=== PATIENT | male | born 1990 | race Caucasian/White ===

== ENCOUNTER → 2016-06-24 | Outpatient (REF) | payer OTHER | LOC: M SFHCLERA 11:14 | PROVIDERS: ATTEND Nurse Practitioner Family | DX: J02.9 Acute pharyngitis, unspecified (principal) ==

== ENCOUNTER 2016-07-05 11:45 | Emergency (ER) | payer OTHER ==
[2016-07-05] MEDS ORDERED: ALBUTEROL SULFATE 2.5 MG/0.5 ML INH NEB SOLN As Ordered ONE (12:28)
[2016-07-05] MEDS ORDERED: IPRATROPIUM 0.5MG/ALBUTEROL 2.5MG INH SOL UD 3ML (DUONEB)(J7620) As Ordered ONE (12:28)
[2016-07-05 12:37] LABS: BASO # 0.2 K/mm3 (0.0-0.2); BASO % 1.7 % (0.0-1.0); EOS # 1.1 K/mm3 (0.0-0.50); EOS % 9.7 % (0.0-3.0); LARGE UNSTAINED CELL # 0.1 K/mm3 (0.0-0.4); LARGE UNSTAINED CELL % 1.1 % (0.0-4.0); LYMPH % 16.9 % (24.0-44.0); MEAN CORPUSCULAR HEMOGLOBIN 29.2 pg (27.0-33.0); MEAN CORPUSCULAR HGB CONC 33.4 g/dl (32.0-36.5); MEAN CORPUSCULAR VOLUME 87.3 fl (80.0-96.0); MONO # 0.5 K/mm3 (0.0-0.8); MONO % 4.4 % (0.0-5.0); NEUTROPHILS # 7.4 K/mm3 (1.8-7.7); NEUTROPHILS % 66.2 % (36.0-66.0); PLATELET COUNT, AUTOMATED 327 k/mm3 (150-450); RED CELL DISTRIBUTION WIDTH 13.7 % (11.5-14.5); WHITE BLOOD COUNT 11.2 K/mm3 (4.0-10.0)
[2016-07-05 12:51] LABS: ABG BASE EXCESS -1.1 (-2.0-2.0); ABG DEVICE NASAL CANN; ABG PARTIAL PRESSURE CO2 36.9 mmHg (35.0-45.0); ABG PARTIAL PRESSURE O2 70.2 mmHg (75.0-100.0); ABG STANDARD HCO3 23.5 MEQ/L (22.0-26.0); ABG TOTAL CO2 24.2 MEQ/L (22.0-29.0); ABG pH (ARTERIAL) 7.413 UNITS (7.350-7.450)
[2016-07-05 13:03] LABS: ANION GAP 8 MEQ/L (8-16); BLOOD UREA NITROGEN 14 MG/DL (7-18); CALCIUM LEVEL 9.1 MG/DL (8.5-10.1); CARBON DIOXIDE LEVEL 29 MEQ/L (21-32); CHLORIDE LEVEL 103 MEQ/L (98-107); CREATININE FOR GFR 1.44 MG/DL (0.70-1.30); GLOMERULAR FILTRATION RATE > 60.0 (>60); GLUCOSE, FASTING 97 MG/DL (70-105); SODIUM LEVEL 140 MEQ/L (136-145)
[2016-07-05] MEDS ORDERED: ISOVUE-370 76% 100ML VIAL (Q9967) As Ordered ONE (13:30)
--- NOTE | 2016-07-05 14:35 | REP ---
CTA chest 07/05/2016 Indication: Shortness of breath, exclude pulmonary embolus Comparison: Chest radiographs 07/05/2016, and 11/05/2015 Technique: Following dynamic IV contrast administration with 75 ml Isovue 370 mg/ml, a meter contiguous spiral axial sections were performed through the chest The thoracic aorta is without aneurysm or dissection. The heart is of normal 12.6 mm right hilar node, mildly enlarged. There is homogeneous opacification of the central pulmonary arteries, without filling defects or findings to suggest pulmonary laterally emboli. There is small amount of probable atelectasis within the right middle lobe and left lower lobe. There are no alveolar infiltrates or pleural effusions. Visualized portions of the liver, spleen, pancreas are normal. The gallbladder is contracted, without visualized stones. Adrenal glands are within normal limits. Impression 1. No visualized pulmonary artery emboli. Thoracic aorta without aneurysm or dissection 2. 12.6 mm right hilar node, mildly enlarged. 3. Small amount of probable atelectasis and/or scarring within the right middle lobe and lateral basilar segment left lower lobe. Signed by Brittney Chapin MD 07/05/2016 02:27 P
[2016-07-05] MEDS ORDERED: methylPREDNISolone INJ 125 MG/2 ML VIAL (J2930) As Ordered ONE (15:33)
--- NOTE | 2016-07-05 16:35 | EDDOCDS ---
Physician Documentation [facility] Name: Isrrael Alexis Age: 26 yrs Sex: Male : 1990 Arrival Date: 07/05/2016 Time: 11:45 Bed I3 / M3 Private MD: NETTA VILLAGOMEZ Disposition: 07/05/16 15:33 Discharged to Home/Self Care. Impression: Moderate persistent asthma with (acute) exacerbation - following recent illness. - Condition is Stable. - Discharge Instructions: Asthma, Adult. - Prescriptions for Prednisone 20 mg Oral Tablet - take 1 tablet by ORAL route as directed Day 1-3: 3 po, day 4-7: 2 po, day 8-10: 1 po; 20 tablet. - Medication Reconciliation, Local Pharmacy Hours form. - Follow up: [facility]; When: 2 - 3 days; Reason: Recheck today's complaints. Follow up: Emergency Department; When: As needed; Reason: Fever > 102F, Trouble breathing, Worsening of conditions. - Problem is new. - Symptoms have improved. Historical: - Allergies: no known allergies; - Home Meds: 1. hydroxyzine HCl 25 mg Oral tab 1 tab 3 times per day (Last dose: 07/04/2016) 2. Albuterol Nebulizer every 4-6 hours 3. Advair Diskus 500-50 mcg/dose inhalation dsdv 2 times per day 4. Albuterol Inhl 5. Spiriva with HandiHaler 18 mcg Inhl CpDv once daily 6. Combivent 18-103 mcg/actuation Inhl aero twice a day - PMHx: TBI; PTSD; Asthma; Anxiety; - PSHx: Sinus Surgery; Lasik Surgery; - Social history: Smoking status: Chewing Tobacco No barriers to communication noted, The patient speaks fluent Hungarian, Speaks appropriately for age. - Family history: Not pertinent. - : The pt / caregiver states he / she is not on anticoagulants. Home medication list is obtained from the patient. - Exposure Risk Screening:: None identified. Vital Signs: 07/05 11:47 BP 132 / 82; Pulse 120; Resp 18 S; Temp 97.4(O); Pulse Ox 91% on R/A; Weight 124.74 kg gr2 / 275 lbs (R); Height 6 ft. 3 in. (190.50 cm) (R); Pain 3/10; 14:16 BP 168 / 95; Pulse 98; Resp 20; Temp 99.2(TE); Pulse Ox 98% on 15% Venturi mask; Pain sew 0/10; 16:26 BP 157 / 85; Pulse 90; Resp 18; Temp 99.0; Pulse Ox 95% on R/A; jmk 11:47 Body Mass Index 34.37 (124.74 kg, 190.50 cm) gr2 MDM: 12:13 IV Saline Lock ordered. ar2 12:13 Call Respiratory ordered. ar2 12:13 Albuterol-Ipratropium 3 ml Inhalation once ordered. ar2 12:13 Albuterol 5 mg Nebulizer once ordered. ar2 12:13 Pulse ox continuous ordered. ar2 12:15 -Arterial Blood Gas Ordered. EDMS 12:15 CBC with Diff Ordered. EDMS 12:15 MED Profile Ordered. EDMS 12:15 Chest, 2 View (pa\E\lat) Ordered. EDMS 12:17 Call Respiratory complete. dls 12:34 [facility] Payment Agreement was scanned into [employer] and attached to record. jp5 12:34 Financial registration complete. jp5 13:20 -Arterial Blood Gas Reviewed. ar2 13:20 CBC with Diff Reviewed. ar2 13:20 MED Profile Reviewed. ar2 13:28 NS 0.9% 1000 ml IV at bolus once ordered. ar2 13:29 CT Chest Angio R/O PE Ordered. EDMS 15:29 Solu-MEDROL 125 mg IVP once ordered. ar2 Administered Medications: 12:37 Drug: Albuterol 5 mg [albuterol sulfate 2.5 mg/0.5 mL solution for nebulization (1 mL)] cs15 Route: Nebulizer; 12:49 Drug: Albuterol-Ipratropium 3 ml [ipratropium-albuterol 0.5 mg-3 mg(2.5 mg base)/3 mL cs15 nebulization soln (3 mL)] Route: Inhalation; 12:57 Follow up: Response: Nebulizer completed cs15 13:47 Drug: NS 0.9% 1000 ml [sodium chloride 0.9 % intravenous solution] Route: IV; Rate: dls bolus; Site: left antecubital; 15:38 Drug: Solu-MEDROL 125 mg [Solu-Medrol 500 mg intravenous solution (125 mg)] Route: IVP; angel Site: left antecubital; Signatures: Dispatcher [employer] Donovan Frias RN RN jmk Scott, Debra, RN RN dls Robertshaw, Aaron, PA-C PA-Aura ar2 Daysi Sloan RN RN ead Price, Jennalee jp5 Cholo Acosta RT cs15 The chart was reviewed and I authenticate all verbal orders and agree with the evaluation and treatment provided.Attachments: 12:34 [facility] Payment Agreement jp5 MTDD
--- NOTE | 2016-07-05 16:35 | EDDOCDS ---
Nurse's Notes [facility] Name: Isrrael Alexis Age: 26 yrs Sex: Male : 1990 Arrival Date: 07/05/2016 Time: 11:45 Bed I3 / M3 Private MD: NETTA VILLAGOMEZ Diagnosis: Moderate persistent asthma with (acute) exacerbation-following recent illness Presentation: 07/05 11:49 Presenting complaint: Patient states: c/o cough and difficulty breathing since ead yesterday. reports hx of asthma. reports minimal improvements with breathing treatments at home. Adult Sepsis Screening: The patient does not have new or worsening altered mentation. Patient's respiratory rate is less than 22. Systolic blood pressure is greater than 100. Patient has a qSOFA score of 0- Negative Sepsis Screen. Suicide/Homicide risk assessment- the patient denies having any suicidal and/or homicidal ideations and does not present with any other emotional, behavioral or mental health complaints. Status: Patient is not a director of environmental services or dependent. Transition of care: patient was not received from another setting of care. 11:49 Acuity: JÚNIOR Level 3 ead 11:49 Method Of Arrival: Walkin/Carried/Asstd ead Triage Assessment: 11:53 General: Appears in no apparent distress, comfortable, well nourished, well groomed, ead Behavior is appropriate for age, cooperative. Pain: Denies pain. HIV screening NA for this visit Offered previously. Neurological: No deficits noted. Respiratory: Onset: The symptoms/episode began/occurred yesterday, Airway is patent Respiratory effort is even, unlabored, Reports cough that is. Derm: Skin is pink, warm & dry. Historical: - Allergies: no known allergies; - Home Meds: 1. hydroxyzine HCl 25 mg Oral tab 1 tab 3 times per day (Last dose: 07/04/2016) 2. Albuterol Nebulizer every 4-6 hours 3. Advair Diskus 500-50 mcg/dose inhalation dsdv 2 times per day 4. Albuterol Inhl 5. Spiriva with HandiHaler 18 mcg Inhl CpDv once daily 6. Combivent 18-103 mcg/actuation Inhl aero twice a day - PMHx: TBI; PTSD; Asthma; Anxiety; - PSHx: Sinus Surgery; Lasik Surgery; - Social history: Smoking status: Chewing Tobacco No barriers to communication noted, The patient speaks fluent Nauruan, Speaks appropriately for age. - Family history: Not pertinent. - : The pt / caregiver states he / she is not on anticoagulants. Home medication list is obtained from the patient. - Exposure Risk Screening:: None identified. Screenin:36 Screening information is obtained from the patient. Fall risk: No risks identified. jmk Assistance ADL's: requires no assistance with activities of daily living. Abuse/DV Screen: The patient / caregiver reports he/she is: not in a situation that causes fear, pain or injury. Nutritional screening: No deficits noted. Advance Directives: Currently, there is no health care proxy. There is no active DNR order. There is no living will. There is no Power of Agriculture Science Teacher. Advance directive information has not previously been placed in an [facility] medical record. home support is adequate. Assessment: 12:36 General: Appears in no apparent distress. Cardiovascular: Capillary refill < 3 seconds jmk Clubbing of nail beds is absent Heart tones S1 S2 present. Respiratory: Airway is patent Respiratory effort is even, unlabored, Breath sounds are clear bilaterally. 12:38 Respiratory: Breath sounds are diminished bilaterally. jmk 12:38 General: conversing complete sentences without resp interruption. chest IS CTA, but jmk diminished.. 13:40 General: Appears reports less SOB. mno cough appreciated. pulse ox 91-94% room air. jmk 14:46 General: Appears Improved aeration. end insp wheezes to right base. reports feeling jmk better. Venti mask D/C.. 15:18 General: Appears ambulated about department on room air. maintained min sat of jmk 93%.conversing with complete sentences without resp interruption.. 15:39 General: Appears quietly sitting on stretcher. conversing complete sentences without jmk resp interruption. Presently pulse ox fluctuates between 89 and 95% on room air. Overall presentation is unchanged. Vital Signs: 11:47 BP 132 / 82; Pulse 120; Resp 18 S; Temp 97.4(O); Pulse Ox 91% on R/A; Weight 124.74 kg gr2 (R); Height 6 ft. 3 in. (190.50 cm) (R); Pain 3/10; 14:16 BP 168 / 95; Pulse 98; Resp 20; Temp 99.2(TE); Pulse Ox 98% on 15% Venturi mask; Pain sew 0/10; 16:26 BP 157 / 85; Pulse 90; Resp 18; Temp 99.0; Pulse Ox 95% on R/A; jmk 11:47 Body Mass Index 34.37 (124.74 kg, 190.50 cm) gr2 Vitals: 11:47 Log In Time: July 05, 2016 at 11:47. gr2 ED Course: 11:46 Patient visited by Allison James. gr2 11:46 MNNETTA is Private Physician. gr2 11:46 Patient moved to Waiting gr2 11:47 Patient visited by Allison James. gr2 11:47 Patient moved to Pre RCE gr2 11:51 Triage Initiated ead 12:00 Patient moved to Triage 1 ms18 12:07 [facility] Johnson [facility] ar2 12:07 Michelle Georges MD is Attending Physician. ar2 12:07 Patient visited by Brian Johnson PA-C. ar2 12:12 Patient moved to I3 / M3 ar3 12:34 [facility] Payment Agreement was scanned into [employer] and attached to record. jp5 12:36 The patient / caregiver is instructed regarding the plan of care and ED course. jmk 12:39 Patient visited by Donovan Sahu,BRUNILDA. jmk 12:49 -Arterial Blood Gas Sent. cs15 13:41 Patient visited by Donovan Sahu,BRUNILDA. jmk 14:17 Patient visited by Marley Cordero. sew 14:47 Patient visited by Donovan Sahu,BRUNILDA. jmk 15:13 CT Chest Angio R/O PE Returned. EDMS 15:33 [facility] is Referral Physician. ar2 16:26 No IV's were initiated during this patient's visit. No procedures done that require radhak assistance. Administered Medications: 12:37 Drug: Albuterol 5 mg [albuterol sulfate 2.5 mg/0.5 mL solution for nebulization (1 mL)] cs15 Route: Nebulizer; 12:49 Drug: Albuterol-Ipratropium 3 ml [ipratropium-albuterol 0.5 mg-3 mg(2.5 mg base)/3 mL cs15 nebulization soln (3 mL)] Route: Inhalation; 12:57 Follow up: Response: Nebulizer completed cs15 13:47 Drug: NS 0.9% 1000 ml [sodium chloride 0.9 % intravenous solution] Route: IV; Rate: dls bolus; Site: left antecubital; 15:38 Drug: Solu-MEDROL 125 mg [Solu-Medrol 500 mg intravenous solution (125 mg)] Route: IVP; radhak Site: left antecubital; RT: 12:49 ABG's drawn from left radial artery allens test done and positive pressure held for 5 cs15 minutes no bleeding noted pressure bandage applied specimen sent pt. tolerated well. Initial Med Neb Given as ordered. Respiratory: Respiratory effort is labored, Respiratory pattern is regular Breath sounds are diminished bilaterally. Reports chest tightness in the upper lobes. Auscultation over larynx is normal. 12:58 O2 via face mask \T\ 8L/min. cs15 Order Results: Lab Order: -Arterial Blood Gas; SPEC'M 07/05/16 12:44 Test: ABG pH (ARTERIAL); Value: 7.413; Range: 7.350-7.450; Units: UNITS; Status: F Test: ABG PARTIAL PRESSURE CO2; Value: 36.9; Range: 35.0-45.0; Units: mmHg; Status: F Test: ABG PARTIAL PRESSURE O2; Value: 70.2; Range: 75.0-100.0; Abnormal: Below low normal; Units: mmHg; Status: F Test: ABG TOTAL CO2; Value: 24.2; Range: 22.0-29.0; Units: MEQ/L; Status: F Test: ABG HCO3; Value: 23.0; Range: 22.0-26.0; Units: MEQ/L; Status: F Test: ABG BASE EXCESS; Value: -1.1; Range: -2.0-2.0; Status: F Test: ABG STANDARD HCO3; Value: 23.5; Range: 22.0-26.0; Units: MEQ/L; Status: F Test: ABG O2 SATURATION; Value: 94.2; Range: 95.0-99.0; Abnormal: Below low normal; Units: %; Status: F Test: ABG DEVICE; Value: NASAL TILA; Status: F Lab Order: CBC with Diff; SPEC'M 07/05/16 12:20 Test: WHITE BLOOD COUNT; Value: 11.2; Range: 4.0-10.0; Abnormal: Above high normal; Units: K/mm3; Status: F Test: RED BLOOD COUNT; Value: 5.38; Range: 4.30-6.10; Units: M/mm3; Status: F Test: HEMOGLOBIN; Value: 15.7; Range: 14.0-18.0; Units: g/dl; Status: F Test: HEMATOCRIT; Value: 47.0; Range: 42.0-52.0; Units: %; Status: F Test: MEAN CORPUSCULAR VOLUME; Value: 87.3; Range: 80.0-96.0; Units: fl; Status: F Test: MEAN CORPUSCULAR HEMOGLOBIN; Value: 29.2; Range: 27.0-33.0; Units: pg; Status: F Test: MEAN CORPUSCULAR HGB CONC; Value: 33.4; Range: 32.0-36.5; Units: g/dl; Status: F Test: RED CELL DISTRIBUTION WIDTH; Value: 13.7; Range: 11.5-14.5; Units: %; Status: F Test: PLATELET COUNT, AUTOMATED; Value: 327; Range: 150-450; Units: k/mm3; Status: F Test: NEUTROPHILS %; Value: 66.2; Range: 36.0-66.0; Abnormal: Above high normal; Units: %; Status: F Test: LYMPH %; Value: 16.9; Range: 24.0-44.0; Abnormal: Below low normal; Units: %; Status: F Test: MONO %; Value: 4.4; Range: 0.0-5.0; Units: %; Status: F Test: EOS %; Value: 9.7; Range: 0.0-3.0; Abnormal: Above high normal; Units: %; Status: F Test: BASO %; Value: 1.7; Range: 0.0-1.0; Abnormal: Above high normal; Units: %; Status: F Test: LARGE UNSTAINED CELL %; Value: 1.1; Range: 0.0-4.0; Units: %; Status: F Test: NEUTROPHILS #; Value: 7.4; Range: 1.8-7.7; Units: K/mm3; Status: F Test: LYMPH #; Value: 2.0; Range: 1.5-6.5; Units: K/mm3; Status: F Test: MONO #; Value: 0.5; Range: 0.0-0.8; Units: K/mm3; Status: F Test: EOS #; Value: 1.1; Range: 0.0-0.50; Abnormal: Above high normal; Units: K/mm3; Status: F Test: BASO #; Value: 0.2; Range: 0.0-0.2; Units: K/mm3; Status: F Test: LARGE UNSTAINED CELL #; Value: 0.1; Range: 0.0-0.4; Units: K/mm3; Status: F Lab Order: MED Profile; SPEC'M 07/05/16 12:23 Test: GLUCOSE, FASTING; Value: 97; Range: 70-105; Units: MG/DL; Status: F Test: BLOOD UREA NITROGEN; Value: 14; Range: 7-18; Units: MG/DL; Status: F Test: CREATININE FOR GFR; Value: 1.44; Range: 0.70-1.30; Abnormal: Above high normal; Units: MG/DL; Status: F Test: GLOMERULAR FILTRATION RATE; Value: > 60.0; Range: >60; Status: F Test: SODIUM LEVEL; Value: 140; Range: 136-145; Units: MEQ/L; Status: F Test: POTASSIUM SERUM; Value: 4.0; Range: 3.5-5.1; Units: MEQ/L; Status: F Test: CHLORIDE LEVEL; Value: 103; Range: 98-107; Units: MEQ/L; Status: F Test: CARBON DIOXIDE LEVEL; Value: 29; Range: 21-32; Units: MEQ/L; Status: F Test: ANION GAP; Value: 8; Range: 8-16; Units: MEQ/L; Status: F Test: CALCIUM LEVEL; Value: 9.1; Range: 8.5-10.1; Units: MG/DL; Status: F Test Note: ; Units are mL/min/1.73 m2 Chronic Kidney Disease Staging per NKF: Stage I & II GFR >=60 Normal to Mildly Decreased Stage III GFR 30-59 Moderately Decreased Stage IV GFR 15-29 Severely Decreased Stage V GFR <15 Very Little GFR Left ESRD GFR <15 on STRATEGY DIRECTOR Radiology Order: CT Chest Angio R/O PE Test: CT Chest Angio R/O PE REASON FOR EXAMINATION: sob r/o pe; CTA chest 07/05/2016; ; Indication: Shortness of breath, exclude pulmonary embolus; ; Comparison: Chest radiographs 07/05/2016, and 11/05/2015; ; Technique: Following dynamic IV contrast administration with 75 ml Isovue 370; mg/ml, a meter contiguous spiral axial sections were performed through the chest; ; The thoracic aorta is without aneurysm or dissection. The heart is of normal; 12.6 mm right hilar node, mildly enlarged. There is homogeneous opacification of; the central pulmonary arteries, without filling defects or findings to suggest; pulmonary laterally emboli.; ; There is small amount of probable atelectasis within the right middle lobe and; left lower lobe. There are no alveolar infiltrates or pleural effusions.; ; Visualized portions of the liver, spleen, pancreas are normal. The gallbladder; is contracted, without visualized stones. Adrenal glands are within normal; limits.; ; Impression; 1. No visualized pulmonary artery emboli. Thoracic aorta without aneurysm or; dissection; 2. 12.6 mm right hilar node, mildly enlarged.; 3. Small amount of probable atelectasis and/or scarring within the right middle; lobe and lateral basilar segment left lower lobe.; ; ; Signed by; Brittney Chapin MD 07/05/2016 02:27 P; Outcome: 15:33 Discharge ordered by Provider. ar2 16:26 Discharge Assessment: Patient awake, alert and oriented x 3. No cognitive and/or jmk functional deficits noted. Patient verbalized understanding of disposition instructions. patient administered narcotics - no. The following High Risk Discharge criteria are identified: None. Discharged to home ambulatory. Condition: good. Discharge instructions given to patient, Instructed on Demonstrated understanding of instructions, medications, Pt was receptive of discharge instructions/ teaching. Prescriptions given X 1. No special radiology studies were completed. Property :Personal belongings accompany Pt. 16:34 Patient left the ED. angel Signatures: Dispatcher [employer] EDAK Donovan Sahu RN RN jmk Scott, Debra, RN RN dls Robertshaw, Aaron, PA-C PA-C ar2 Patricia Chapin, PAVING BLOCK CUTTER PAVING BLOCK CUTTER ar3 Gil, Allison Trujillo gr2 Daysi Sloan,RN RN sophiad Amy Perez RN RN ms18 Deirdre Kilpatrick jp5 Cholo Acosta,RT RT cs15 LEIAD
--- NOTE | 2016-07-05 20:21 | REP ---
PA and lateral chest radiograph 07/05/2016 Indication: Shortness of breath and wheezing Comparison: PA and lateral chest 11/05/2015 Findings: Cardiomediastinal silhouette is normal. In the lateral view there are some stranding densities in the lower lobe distribution most compatible with atelectatic changes, likely within basilar segments of right lower lobe. Bones and soft tissues are within normal limits. Impression: 1. Normal cardiomediastinal silhouette 2. Stranding densities with lower lobe distribution identified primarily in the lateral view. This likely represents some mild atelectatic changes, likely within the right base. Recommend follow-up to resolution Signed by Brittney Chapin MD 07/05/2016 08:13 P
--- NOTE | 2016-07-07 17:35 | EDDOCDS ---
Physician Documentation [facility] Name: Isrrael Alexis Age: 26 yrs Sex: Male : 1990 Arrival Date: 07/05/2016 Time: 11:45 Bed I3 / M3 Private MD: NETTA VILLAGOMEZ Disposition: 07/05/16 15:33 Discharged to Home/Self Care. Impression: Moderate persistent asthma with (acute) exacerbation - following recent illness. - Condition is Stable. - Discharge Instructions: Asthma, Adult. - Prescriptions for Prednisone 20 mg Oral Tablet - take 1 tablet by ORAL route as directed Day 1-3: 3 po, day 4-7: 2 po, day 8-10: 1 po; 20 tablet. - Medication Reconciliation, Local Pharmacy Hours form. - Follow up: [facility]; When: 2 - 3 days; Reason: Recheck today's complaints. Follow up: Emergency Department; When: As needed; Reason: Fever > 102F, Trouble breathing, Worsening of conditions. - Problem is new. - Symptoms have improved. Historical: - Allergies: no known allergies; - Home Meds: 1. hydroxyzine HCl 25 mg Oral tab 1 tab 3 times per day (Last dose: 07/04/2016) 2. Albuterol Nebulizer every 4-6 hours 3. Advair Diskus 500-50 mcg/dose inhalation dsdv 2 times per day 4. Albuterol Inhl 5. Spiriva with HandiHaler 18 mcg Inhl CpDv once daily 6. Combivent 18-103 mcg/actuation Inhl aero twice a day - PMHx: TBI; PTSD; Asthma; Anxiety; - PSHx: Sinus Surgery; Lasik Surgery; - Social history: Smoking status: Chewing Tobacco No barriers to communication noted, The patient speaks fluent Upper Sorbian, Speaks appropriately for age. - Family history: Not pertinent. - : The pt / caregiver states he / she is not on anticoagulants. Home medication list is obtained from the patient. - Exposure Risk Screening:: None identified. Vital Signs: 07/05 11:47 BP 132 / 82; Pulse 120; Resp 18 S; Temp 97.4(O); Pulse Ox 91% on R/A; Weight 124.74 kg gr2 / 275 lbs (R); Height 6 ft. 3 in. (190.50 cm) (R); Pain 3/10; 14:16 BP 168 / 95; Pulse 98; Resp 20; Temp 99.2(TE); Pulse Ox 98% on 15% Venturi mask; Pain sew 0/10; 16:26 BP 157 / 85; Pulse 90; Resp 18; Temp 99.0; Pulse Ox 95% on R/A; jmk 11:47 Body Mass Index 34.37 (124.74 kg, 190.50 cm) gr2 MDM: 12:13 IV Saline Lock ordered. ar2 12:13 Call Respiratory ordered. ar2 12:13 Albuterol-Ipratropium 3 ml Inhalation once ordered. ar2 12:13 Albuterol 5 mg Nebulizer once ordered. ar2 12:13 Pulse ox continuous ordered. ar2 12:15 -Arterial Blood Gas Ordered. EDMS 12:15 CBC with Diff Ordered. EDMS 12:15 MED Profile Ordered. EDMS 12:15 Chest, 2 View (pa\E\lat) Ordered. EDMS 12:17 Call Respiratory complete. dls 12:34 [facility] Payment Agreement was scanned into [employer] and attached to record. jp5 12:34 Financial registration complete. jp5 13:20 -Arterial Blood Gas Reviewed. ar2 13:20 CBC with Diff Reviewed. ar2 13:20 MED Profile Reviewed. ar2 13:28 NS 0.9% 1000 ml IV at bolus once ordered. ar2 13:29 CT Chest Angio R/O PE Ordered. EDMS 15:29 Solu-MEDROL 125 mg IVP once ordered. ar2 07/06 11:59 T-Sheet-- Draft Copy was scanned into [employer] and attached to record. gb 11:59 Radiology Report was scanned into [employer] and attached to record. gb 20:11 ED course: [facility] faxed formal report of cxr for fu mlg. ml 20:16 ED course: [facility] fax[facility] cta for fu mlg. ml Administered Medications: 07/05 12:37 Drug: Albuterol 5 mg [albuterol sulfate 2.5 mg/0.5 mL solution for nebulization (1 mL)] cs15 Route: Nebulizer; 12:49 Drug: Albuterol-Ipratropium 3 ml [ipratropium-albuterol 0.5 mg-3 mg(2.5 mg base)/3 mL cs15 nebulization soln (3 mL)] Route: Inhalation; 12:57 Follow up: Response: Nebulizer completed cs15 13:47 Drug: NS 0.9% 1000 ml [sodium chloride 0.9 % intravenous solution] Route: IV; Rate: dls bolus; Site: left antecubital; 15:38 Drug: Solu-MEDROL 125 mg [Solu-Medrol 500 mg intravenous solution (125 mg)] Route: IVP; jmk Site: left antecubital; Signatures: Dispatcher [employer] EDJoelle Nicholson MD MD ml Knapp, Jean,RN RN Mable Luna RN RN Francesca Solorzano, Denny Reg gb Brian Johnson PA-C PA-C ar2 Dunaway, Emily,RN RN Deirdre Bhagat jp5 Cholo Acosta RT cs15 The chart was reviewed and I authenticate all verbal orders and agree with the evaluation and treatment provided.Attachments: 12:34 [facility] [place] Payment Agreement jp5 07/06 11:59 T-Sheet-- Draft Copy gb Chart Complete MTDD
--- NOTE | 2016-07-07 17:35 | EDDOCDS ---
[facility] Name: Isrrael Alexis Age: 26 yrs Sex: Male : 1990 Arrival Date: 07/05/2016 Time: 11:45 Bed I3 / M3 Private MD: NETTA VILLAGOMEZ Diagnosis: Moderate persistent asthma with (acute) exacerbation-following recent illness Presentation: 07/05 11:49 Presenting complaint: Patient states: c/o cough and difficulty breathing since ead yesterday. reports hx of asthma. reports minimal improvements with breathing treatments at home. Adult Sepsis Screening: The patient does not have new or worsening altered mentation. Patient's respiratory rate is less than 22. Systolic blood pressure is greater than 100. Patient has a qSOFA score of 0- Negative Sepsis Screen. Suicide/Homicide risk assessment- the patient denies having any suicidal and/or homicidal ideations and does not present with any other emotional, behavioral or mental health complaints. Status: Patient is not a manager services or dependent. Transition of care: patient was not received from another setting of care. 11:49 Acuity: JÚNIOR Level 3 ead 11:49 Method Of Arrival: Walkin/Carried/Asstd ead Triage Assessment: 11:53 General: Appears in no apparent distress, comfortable, well nourished, well groomed, ead Behavior is appropriate for age, cooperative. Pain: Denies pain. HIV screening NA for this visit Offered previously. Neurological: No deficits noted. Respiratory: Onset: The symptoms/episode began/occurred yesterday, Airway is patent Respiratory effort is even, unlabored, Reports cough that is. Derm: Skin is pink, warm & dry. Historical: - Allergies: no known allergies; - Home Meds: 1. hydroxyzine HCl 25 mg Oral tab 1 tab 3 times per day (Last dose: 07/04/2016) 2. Albuterol Nebulizer every 4-6 hours 3. Advair Diskus 500-50 mcg/dose inhalation dsdv 2 times per day 4. Albuterol Inhl 5. Spiriva with HandiHaler 18 mcg Inhl CpDv once daily 6. Combivent 18-103 mcg/actuation Inhl aero twice a day - PMHx: TBI; PTSD; Asthma; Anxiety; - PSHx: Sinus Surgery; Lasik Surgery; - Social history: Smoking status: Chewing Tobacco No barriers to communication noted, The patient speaks fluent Portuguese, Speaks appropriately for age. - Family history: Not pertinent. - : The pt / caregiver states he / she is not on anticoagulants. Home medication list is obtained from the patient. - Exposure Risk Screening:: None identified. Screenin:36 Screening information is obtained from the patient. Fall risk: No risks identified. jmk Assistance ADL's: requires no assistance with activities of daily living. Abuse/DV Screen: The patient / caregiver reports he/she is: not in a situation that causes fear, pain or injury. Nutritional screening: No deficits noted. Advance Directives: Currently, there is no health care proxy. There is no active DNR order. There is no living will. There is no Power of Title Searcher. Advance directive information has not previously been placed in an [facility] medical record. home support is adequate. Assessment: 12:36 General: Appears in no apparent distress. Cardiovascular: Capillary refill < 3 seconds jmk Clubbing of nail beds is absent Heart tones S1 S2 present. Respiratory: Airway is patent Respiratory effort is even, unlabored, Breath sounds are clear bilaterally. 12:38 Respiratory: Breath sounds are diminished bilaterally. jmk 12:38 General: conversing complete sentences without resp interruption. chest IS CTA, but jmk diminished.. 13:40 General: Appears reports less SOB. mno cough appreciated. pulse ox 91-94% room air. jmk 14:46 General: Appears Improved aeration. end insp wheezes to right base. reports feeling jmk better. Venti mask D/C.. 15:18 General: Appears ambulated about department on room air. maintained min sat of jmk 93%.conversing with complete sentences without resp interruption.. 15:39 General: Appears quietly sitting on stretcher. conversing complete sentences without jmk resp interruption. Presently pulse ox fluctuates between 89 and 95% on room air. Overall presentation is unchanged. Vital Signs: 11:47 BP 132 / 82; Pulse 120; Resp 18 S; Temp 97.4(O); Pulse Ox 91% on R/A; Weight 124.74 kg gr2 (R); Height 6 ft. 3 in. (190.50 cm) (R); Pain 3/10; 14:16 BP 168 / 95; Pulse 98; Resp 20; Temp 99.2(TE); Pulse Ox 98% on 15% Venturi mask; Pain sew 0/10; 16:26 BP 157 / 85; Pulse 90; Resp 18; Temp 99.0; Pulse Ox 95% on R/A; jmk 11:47 Body Mass Index 34.37 (124.74 kg, 190.50 cm) gr2 Vitals: 11:47 Log In Time: July 05, 2016 at 11:47. gr2 ED Course: 11:46 Patient visited by Allison James. gr2 11:46 WANETTA is Private Physician. gr2 11:46 Patient moved to Waiting gr2 11:47 Patient visited by Allison James. gr2 11:47 Patient moved to Pre RCE gr2 11:51 Triage Initiated ead 12:00 Patient moved to Triage 1 ms18 12:07 [facility] ar2 12:07 Michelle Georges MD is Attending Physician. ar2 12:07 Patient visited by Brian Johnson PA-C. ar2 12:12 Patient moved to I3 / M3 ar3 12:34 [facility] Payment Agreement was scanned into Right[employer] and attached to record. jp5 12:36 The patient / caregiver is instructed regarding the plan of care and ED course. jmk 12:39 Patient visited by Donovan Sahu,BRUNILDA. jmk 12:49 -Arterial Blood Gas Sent. cs15 13:41 Patient visited by Donovan Sahu,BRUNILDA. jmk 14:17 Patient visited by Marley Cordero. sew 14:47 Patient visited by Donovan Sahu,BRUNILDA. jmk 15:13 CT Chest Angio R/O PE Returned. EDMS 15:33 [facility] is Referral Physician. ar2 16:26 No IV's were initiated during this patient's visit. No procedures done that require jmk assistance. 20:35 Chest, 2 View (pa\E\lat) Returned. EDMS 07/06 11:59 T-Sheet-- Draft Copy was scanned into [employer] and attached to record. gb 11:59 Radiology Report was scanned into [employer] and attached to record. gb Administered Medications: 07/05 12:37 Drug: Albuterol 5 mg [albuterol sulfate 2.5 mg/0.5 mL solution for nebulization (1 mL)] cs15 Route: Nebulizer; 12:49 Drug: Albuterol-Ipratropium 3 ml [ipratropium-albuterol 0.5 mg-3 mg(2.5 mg base)/3 mL cs15 nebulization soln (3 mL)] Route: Inhalation; 12:57 Follow up: Response: Nebulizer completed cs15 13:47 Drug: NS 0.9% 1000 ml [sodium chloride 0.9 % intravenous solution] Route: IV; Rate: dls bolus; Site: left antecubital; 15:38 Drug: Solu-MEDROL 125 mg [Solu-Medrol 500 mg intravenous solution (125 mg)] Route: IVP; [facility] Site: left antecubital; RT: 12:49 ABG's drawn from left radial artery allens test done and positive pressure held for 5 cs15 minutes no bleeding noted pressure bandage applied specimen sent pt. tolerated well. Initial Med Neb Given as ordered. Respiratory: Respiratory effort is labored, Respiratory pattern is regular Breath sounds are diminished bilaterally. Reports chest tightness in the upper lobes. Auscultation over larynx is normal. 12:58 O2 via face mask \T\ 8L/min. cs15 Order Results: Lab Order: -Arterial Blood Gas; SPEC'M 07/05/16 12:44 Test: ABG pH (ARTERIAL); Value: 7.413; Range: 7.350-7.450; Units: UNITS; Status: F Test: ABG PARTIAL PRESSURE CO2; Value: 36.9; Range: 35.0-45.0; Units: mmHg; Status: F Test: ABG PARTIAL PRESSURE O2; Value: 70.2; Range: 75.0-100.0; Abnormal: Below low normal; Units: mmHg; Status: F Test: ABG TOTAL CO2; Value: 24.2; Range: 22.0-29.0; Units: MEQ/L; Status: F Test: ABG HCO3; Value: 23.0; Range: 22.0-26.0; Units: MEQ/L; Status: F Test: ABG BASE EXCESS; Value: -1.1; Range: -2.0-2.0; Status: F Test: ABG STANDARD HCO3; Value: 23.5; Range: 22.0-26.0; Units: MEQ/L; Status: F Test: ABG O2 SATURATION; Value: 94.2; Range: 95.0-99.0; Abnormal: Below low normal; Units: %; Status: F Test: ABG DEVICE; Value: NASAL TILA; Status: F Lab Order: CBC with Diff; SPEC'M 07/05/16 12:20 Test: WHITE BLOOD COUNT; Value: 11.2; Range: 4.0-10.0; Abnormal: Above high normal; Units: K/mm3; Status: F Test: RED BLOOD COUNT; Value: 5.38; Range: 4.30-6.10; Units: M/mm3; Status: F Test: HEMOGLOBIN; Value: 15.7; Range: 14.0-18.0; Units: g/dl; Status: F Test: HEMATOCRIT; Value: 47.0; Range: 42.0-52.0; Units: %; Status: F Test: MEAN CORPUSCULAR VOLUME; Value: 87.3; Range: 80.0-96.0; Units: fl; Status: F Test: MEAN CORPUSCULAR HEMOGLOBIN; Value: 29.2; Range: 27.0-33.0; Units: pg; Status: F Test: MEAN CORPUSCULAR HGB CONC; Value: 33.4; Range: 32.0-36.5; Units: g/dl; Status: F Test: RED CELL DISTRIBUTION WIDTH; Value: 13.7; Range: 11.5-14.5; Units: %; Status: F Test: PLATELET COUNT, AUTOMATED; Value: 327; Range: 150-450; Units: k/mm3; Status: F Test: NEUTROPHILS %; Value: 66.2; Range: 36.0-66.0; Abnormal: Above high normal; Units: %; Status: F Test: LYMPH %; Value: 16.9; Range: 24.0-44.0; Abnormal: Below low normal; Units: %; Status: F Test: MONO %; Value: 4.4; Range: 0.0-5.0; Units: %; Status: F Test: EOS %; Value: 9.7; Range: 0.0-3.0; Abnormal: Above high normal; Units: %; Status: F Test: BASO %; Value: 1.7; Range: 0.0-1.0; Abnormal: Above high normal; Units: %; Status: F Test: LARGE UNSTAINED CELL %; Value: 1.1; Range: 0.0-4.0; Units: %; Status: F Test: NEUTROPHILS #; Value: 7.4; Range: 1.8-7.7; Units: K/mm3; Status: F Test: LYMPH #; Value: 2.0; Range: 1.5-6.5; Units: K/mm3; Status: F Test: MONO #; Value: 0.5; Range: 0.0-0.8; Units: K/mm3; Status: F Test: EOS #; Value: 1.1; Range: 0.0-0.50; Abnormal: Above high normal; Units: K/mm3; Status: F Test: BASO #; Value: 0.2; Range: 0.0-0.2; Units: K/mm3; Status: F Test: LARGE UNSTAINED CELL #; Value: 0.1; Range: 0.0-0.4; Units: K/mm3; Status: F Lab Order: MED Profile; SPEC'M 07/05/16 12:23 Test: GLUCOSE, FASTING; Value: 97; Range: 70-105; Units: MG/DL; Status: F Test: BLOOD UREA NITROGEN; Value: 14; Range: 7-18; Units: MG/DL; Status: F Test: CREATININE FOR GFR; Value: 1.44; Range: 0.70-1.30; Abnormal: Above high normal; Units: MG/DL; Status: F Test: GLOMERULAR FILTRATION RATE; Value: > 60.0; Range: >60; Status: F Test: SODIUM LEVEL; Value: 140; Range: 136-145; Units: MEQ/L; Status: F Test: POTASSIUM SERUM; Value: 4.0; Range: 3.5-5.1; Units: MEQ/L; Status: F Test: CHLORIDE LEVEL; Value: 103; Range: 98-107; Units: MEQ/L; Status: F Test: CARBON DIOXIDE LEVEL; Value: 29; Range: 21-32; Units: MEQ/L; Status: F Test: ANION GAP; Value: 8; Range: 8-16; Units: MEQ/L; Status: F Test: CALCIUM LEVEL; Value: 9.1; Range: 8.5-10.1; Units: MG/DL; Status: F Test Note: ; Units are mL/min/1.73 m2 Chronic Kidney Disease Staging per NKF: Stage I & II GFR >=60 Normal to Mildly Decreased Stage III GFR 30-59 Moderately Decreased Stage IV GFR 15-29 Severely Decreased Stage V GFR <15 Very Little GFR Left ESRD GFR <15 on FREEZING MACHINE OPERATOR Radiology Order: Chest, 2 View (pa\E\lat) Test: Chest, 2 View (pa\E\lat) REASON FOR EXAMINATION: sob, wheezing; PA and lateral chest radiograph 07/05/2016; ; Indication: Shortness of breath and wheezing; ; Comparison: PA and lateral chest 11/05/2015; ; Findings: Cardiomediastinal silhouette is normal. In the lateral view there are; some stranding densities in the lower lobe distribution most compatible with; atelectatic changes, likely within basilar segments of right lower lobe.; ; Bones and soft tissues are within normal limits.; ; Impression:; 1. Normal cardiomediastinal silhouette; 2. Stranding densities with lower lobe distribution identified primarily in the; lateral view. This likely represents some mild atelectatic changes, likely; within the right base. Recommend follow-up to resolution; ; ; Signed by; Brittney Chapin MD 07/05/2016 08:13 P; Radiology Order: CT Chest Angio R/O PE Test: CT Chest Angio R/O PE REASON FOR EXAMINATION: sob r/o pe; CTA chest 07/05/2016; ; Indication: Shortness of breath, exclude pulmonary embolus; ; Comparison: Chest radiographs 07/05/2016, and 11/05/2015; ; Technique: Following dynamic IV contrast administration with 75 ml Isovue 370; mg/ml, a meter contiguous spiral axial sections were performed through the chest; ; The thoracic aorta is without aneurysm or dissection. The heart is of normal; 12.6 mm right hilar node, mildly enlarged. There is homogeneous opacification of; the central pulmonary arteries, without filling defects or findings to suggest; pulmonary laterally emboli.; ; There is small amount of probable atelectasis within the right middle lobe and; left lower lobe. There are no alveolar infiltrates or pleural effusions.; ; Visualized portions of the liver, spleen, pancreas are normal. The gallbladder; is contracted, without visualized stones. Adrenal glands are within normal; limits.; ; Impression; 1. No visualized pulmonary artery emboli. Thoracic aorta without aneurysm or; dissection; 2. 12.6 mm right hilar node, mildly enlarged.; 3. Small amount of probable atelectasis and/or scarring within the right middle; lobe and lateral basilar segment left lower lobe.; ; ; Signed by; Brittney Chapin MD 07/05/2016 02:27 P; Outcome: 15:33 Discharge ordered by Provider. ar2 16:26 Discharge Assessment: Patient awake, alert and oriented x 3. No cognitive and/or jmk functional deficits noted. Patient verbalized understanding of disposition instructions. patient administered narcotics - no. The following High Risk Discharge criteria are identified: None. Discharged to home ambulatory. Condition: good. Discharge instructions given to patient, Instructed on Demonstrated understanding of instructions, medications, Pt was receptive of discharge instructions/ teaching. Prescriptions given X 1. No special radiology studies were completed. Property :Personal belongings accompany Pt. 16:34 Patient left the ED. angel Signatures: Dispatcher [employer] EDMS Donovan Sahu,BRUNILDA RN Mable Luna RN RN dls Rafa, Francesca, Reg Reg Brian Ramey, PA-Aura PAEsau ar2 Patricia Chapin, REGISTERED NURSE POST PARTUM REGISTERED NURSE [employer] PART[employer] ar3 Marley Cordero Gainslee gr2 Daysi Sloan,Amy Martinez RN, RN RN ms18 Deirdre Kilpatrick jp5 Cholo Acosta,RT RT cs15 Chart Complete MTDD
--- NOTE | 2016-07-07 17:35 | EDDOCDS ---
Physician Documentation [facility] Name: Isrrael Alexis Age: 26 yrs Sex: Male : 1990 Arrival Date: 07/05/2016 Time: 11:45 Bed I3 / M3 Private MD: NETTA VILLAGOMEZ Disposition: 07/05/16 15:33 Discharged to Home/Self Care. Impression: Moderate persistent asthma with (acute) exacerbation - following recent illness. - Condition is Stable. - Discharge Instructions: Asthma, Adult. - Prescriptions for Prednisone 20 mg Oral Tablet - take 1 tablet by ORAL route as directed Day 1-3: 3 po, day 4-7: 2 po, day 8-10: 1 po; 20 tablet. - Medication Reconciliation, Local Pharmacy Hours form. - [facility]: [facility]; When: 2 - 3 days; Reason: Recheck today's complaints. Follow up: Emergency Department; When: As needed; Reason: Fever > 102F, Trouble breathing, Worsening of conditions. - Problem is new. - Symptoms have improved. Historical: - Allergies: no known allergies; - Home Meds: 1. hydroxyzine HCl 25 mg Oral tab 1 tab 3 times per day (Last dose: 07/04/2016) 2. Albuterol Nebulizer every 4-6 hours 3. Advair Diskus 500-50 mcg/dose inhalation dsdv 2 times per day 4. Albuterol Inhl 5. Spiriva with HandiHaler 18 mcg Inhl CpDv once daily 6. Combivent 18-103 mcg/actuation Inhl aero twice a day - PMHx: TBI; PTSD; Asthma; Anxiety; - PSHx: Sinus Surgery; Lasik Surgery; - Social history: Smoking status: Chewing Tobacco No barriers to communication noted, The patient speaks fluent Spanish, Speaks appropriately for age. - Family history: Not pertinent. - : The pt / caregiver states he / she is not on anticoagulants. Home medication list is obtained from the patient. - Exposure Risk Screening:: None identified. Vital Signs: 07/05 11:47 BP 132 / 82; Pulse 120; Resp 18 S; Temp 97.4(O); Pulse Ox 91% on R/A; Weight 124.74 kg gr2 / 275 lbs (R); Height 6 ft. 3 in. (190.50 cm) (R); Pain 3/10; 14:16 BP 168 / 95; Pulse 98; Resp 20; Temp 99.2(TE); Pulse Ox 98% on 15% Venturi mask; Pain sew 0/10; 16:26 BP 157 / 85; Pulse 90; Resp 18; Temp 99.0; Pulse Ox 95% on R/A; jmk 11:47 Body Mass Index 34.37 (124.74 kg, 190.50 cm) gr2 MDM: 12:13 IV Saline Lock ordered. ar2 12:13 Call Respiratory ordered. ar2 12:13 Albuterol-Ipratropium 3 ml Inhalation once ordered. ar2 12:13 Albuterol 5 mg Nebulizer once ordered. ar2 12:13 Pulse ox continuous ordered. ar2 12:15 -Arterial Blood Gas Ordered. EDMS 12:15 CBC with Diff Ordered. EDMS 12:15 MED Profile Ordered. EDMS 12:15 Chest, 2 View (pa\E\lat) Ordered. EDMS 12:17 Call Respiratory complete. dls 12:34 [facility] Payment Agreement was scanned into Webs and attached to record. jp5 12:34 Financial registration complete. jp5 13:20 -Arterial Blood Gas Reviewed. ar2 13:20 CBC with Diff Reviewed. ar2 13:20 MED Profile Reviewed. ar2 13:28 NS 0.9% 1000 ml IV at bolus once ordered. ar2 13:29 CT Chest Angio R/O PE Ordered. EDMS 15:29 Solu-MEDROL 125 mg IVP once ordered. ar2 07/06 11:59 T-Sheet-- Draft Copy was scanned into Webs and attached to record. gb 11:59 Radiology Report was scanned into Webs and attached to record. gb 20:11 ED course: [facility] faxed formal report of cxr for fu mlg. ml 20:16 ED course: [facility] fax[facility] cta for fu mlg. ml Administered Medications: 07/05 12:37 Drug: Albuterol 5 mg [albuterol sulfate 2.5 mg/0.5 mL solution for nebulization (1 mL)] cs15 Route: Nebulizer; 12:49 Drug: Albuterol-Ipratropium 3 ml [ipratropium-albuterol 0.5 mg-3 mg(2.5 mg base)/3 mL cs15 nebulization soln (3 mL)] Route: Inhalation; 12:57 Follow up: Response: Nebulizer completed cs15 13:47 Drug: NS 0.9% 1000 ml [sodium chloride 0.9 % intravenous solution] Route: IV; Rate: dls bolus; Site: left antecubital; 15:38 Drug: Solu-MEDROL 125 mg [Solu-Medrol 500 mg intravenous solution (125 mg)] Route: IVP; jmk Site: left antecubital; Signatures: Dispatcher [employer] EDJoelle Nicholson MD MD ml Knapp, Jean,RN RN Mable Luna RN RN Francesca Solorzano, Denny Reg gb Brian Johnson PA-C PA-C ar2 Dunaway, Emily,RN RN Deirdre Bhagat jp5 Cholo Acosta RT cs15 The chart was reviewed and I authenticate all verbal orders and agree with the evaluation and treatment provided.Attachments: 12:34 [facility] Payment Agreement jp5 07/06 11:59 T-Sheet-- Draft Copy gb Chart Complete MTDD
== END 2016-07-05 16:34 | disposition home or self-care (01) ==
LOC: M ED 11:45
DX: J45.901 Unspecified asthma with (acute) exacerbation (principal); F41.9 Anxiety disorder, unspecified; F43.10 Post-traumatic stress disorder, unspecified; Z87.828 Personal history of other (healed) physical injury and trauma; N46.9 Male infertility, unspecified; Z79.899 Other long term (current) drug therapy; Z79.51 Long term (current) use of inhaled steroids; F17.220 Nicotine dependence, chewing tobacco, uncomplicated
CPT/HCPCS: 36600; 71020; 71275; 80048; 82803; 85025; 89320; 94640; 96374; 99284; J2930; Q9967

== ENCOUNTER → 2016-07-05 | Outpatient (REF) | payer OTHER ==
[2016-07-05 13:09] LABS: % NORMAL FORMS 5 % (>=4); IMMOTILITY 63 %; NON PROGRESSIVE MOTILITY (c) 9 %; PROGRESSIVE MOTILITY (a) 28 % (>=32); TOTAL MOTILITY 37 % (>=40)
[2016-07-05 13:10] LABS: SPERM# 166.8 M/Ejac (33-46); TOTAL FUNCTIONAL 6.4 M/Ejac.; TOTAL PROGRESSIVE SPERM 46.4 M/Ejac.
== END ==
LOC: M LAB REF 12:52
PROVIDERS: ATTEND Specialist
DX: N46.9 Male infertility, unspecified (principal)

== ENCOUNTER 2016-09-07 15:31 | Emergency (ER) | payer OTHER ==
[~2016-09-07] VITALS: Ht 190.5 cm; Wt 131.5 kg
[2016-09-07] MEDS ORDERED: ZYRT10CA PO (16:02)
[2016-09-07] MEDS ORDERED: DOXE50CA (16:02)
[2016-09-07] MEDS ORDERED: ADV500INH (16:02)
[2016-09-07] MEDS ORDERED: ZOLO100T (16:02)
[2016-09-07] MEDS ORDERED: ALBU17IN (16:02)
[2016-09-07] MEDS ORDERED: COMBAER6 (16:02)
[2016-09-07] MEDS ORDERED: SING10TA32 (16:02)
[2016-09-07] MEDS ORDERED: CLON-412 (16:02)
[2016-09-07] MEDS ORDERED: HYDR10EL (16:02)
[2016-09-07 17:39] VITALS: BP 169/90
== END 2016-09-07 18:38 | disposition left against medical advice (07) ==
LOC: M ED 16:50
DX: J45.909 Unspecified asthma, uncomplicated (principal); Z53.21 Procedure and treatment not carried out due to patient leaving prior to being seen by health care provider

== ENCOUNTER → 2016-10-09 | Outpatient (REF) | payer OTHER ==
[~2016-10-09] MED LIST: ADV500INH; ALBU17IN; CLON-412; COMBAER6; DOXE50CA; HYDR10EL; SING10TA32; ZOLO100T; ZYRT10CA PO
== END ==
LOC: M SFHCLERA 14:13
PROVIDERS: ATTEND Nurse Practitioner Family
DX: J02.9 Acute pharyngitis, unspecified (principal)

== ENCOUNTER → 2016-10-09 | Outpatient (CLI) | payer OTHER ==
--- NOTE | 2016-10-09 14:26 | REP ---
PA and lateral chest: Comparison is 07/05/2016. On the lateral view there is focal discoid atelectasis anteriorly as an interval change. The remainder the lung bird are clear. Cardiac size is normal. The ruth, mediastinum, and bony thorax are unremarkable. Impression: Focal discoid atelectasis anteriorly, otherwise negative PA and lateral chest. Signed by Juan Lyons MD 10/09/2016 02:17 P
== END ==
LOC: M LRY 13:56
PROVIDERS: ATTEND Nurse Practitioner Family
DX: R06.2 Wheezing (principal)

== ENCOUNTER → 2016-11-16 | Outpatient (REF) | payer OTHER ==
[2016-11-16 20:28] LABS: MEAN CORPUSCULAR HEMOGLOBIN 27.9 pg (27.0-33.0); MEAN CORPUSCULAR HGB CONC 32.4 g/dl (32.0-36.5); RED CELL DISTRIBUTION WIDTH 15.8 % (11.5-14.5); WHITE BLOOD COUNT 9.9 K/mm3 (4.0-10.0)
[2016-11-16 20:33] LABS: ALBUMIN/GLOBULIN RATIO 1.08 (1.00-1.93); ALKALINE PHOSPHATASE 83 U/L (45-117); ALT/SGPT 39 U/L (12-78); ANION GAP 8 MEQ/L (8-16); AST/SGOT 23 U/L (15-37); BILIRUBIN,TOTAL 0.6 MG/DL (0.2-1.0); BLOOD UREA NITROGEN 17 MG/DL (7-18); CALCIUM LEVEL 8.8 MG/DL (8.5-10.1); CARBON DIOXIDE LEVEL 25 MEQ/L (21-32); CHLORIDE LEVEL 106 MEQ/L (98-107); CREATININE FOR GFR 1.16 MG/DL (0.70-1.30); FERRITIN 28 NG/ML (26-388); GLOMERULAR FILTRATION RATE > 60.0 (>60); GLUCOSE, FASTING 87 MG/DL (70-105); POTASSIUM SERUM 4.3 MEQ/L (3.5-5.1); SODIUM LEVEL 139 MEQ/L (136-145); TOTAL PROTEIN 7.7 GM/DL (6.4-8.2)
== END ==
LOC: M SFHCLERA 15:59
PROVIDERS: ATTEND Family Medicine
DX: D50.0 Iron deficiency anemia secondary to blood loss (chronic) (principal); J45.41 Moderate persistent asthma with (acute) exacerbation

== ENCOUNTER → 2017-02-08 | Outpatient (CLI) | payer OTHER ==
[~2017-02-08] MED LIST changes: +CYCL10TA PO; +NORC1TAB4 PO; +PANT40TA2 PO; +TRAM50TA2 PO
== END ==
LOC: M RAD 14:02
DX: M54.5 Low back pain (principal)

== ENCOUNTER → 2017-02-24 | Outpatient (REF) | payer OTHER ==
[2017-03-05 00:08] LABS: AUREOBASIDIUM PULLULANS Negative (Negative); MICROPOLYSPORA FAENI AB Negative (Negative); PIGEON SERUM AB Negative (Negative); THERMOACTINOMYCES SACCHARI Negative (Negative); THERMOACTINOMYCES VULGARIS Negative (Negative)
== END ==
LOC: M LAB REF 14:31
PROVIDERS: ATTEND Internal Medicine Pulmonary Disease
DX: R06.00 Dyspnea, unspecified (principal)

== ENCOUNTER → 2017-03-15 | Outpatient (CLI) | payer OTHER ==
--- NOTE | 2017-03-16 08:43 | REP ---
MRI LUMBAR SPINE WITHOUT CONTRAST: HISTORY: Back pain. The L4-5 intervertebral disc is slightly decreased in height consistent with disc degeneration. There is no disc bulge or herniation at the L1-2 through L3-4 and L5-S1 levels. There is hypertrophy of the posterior articulating facets at the L3-4 and L5-S1 levels. The nerves exit the neural foramina without compression. A diffuse disc bulge is present at the L4-5 level. There is minimal compression of the thecal sac. There is hypertrophy of the posterior articulating facets. The L4 nerves exit the neural foramina without compression. The conus medullaris is normal in appearance terminating at the level of the L1-2 intervertebral discs. Normal signal intensity is present in the lumbar vertebral bodies. IMPRESSION: Diffuse disc bulge at the L4-5 level with minimal thecal sac compression. Signed by Aleksandr Varela MD 03/16/2017 08:45 A
== END ==
LOC: M RAD 16:22
PROVIDERS: ATTEND Physician Assistant
DX: M54.5 Low back pain (principal)

== ENCOUNTER → 2017-08-09 | Outpatient (CLI) | payer OTHER ==
[2017-08-09 08:38] LABS: BASO % 0.4 % (0.0-1.0); EOS # 0.2 10^3/uL (0.0-0.50); EOS % 1.6 % (0.0-3.0); HEMATOCRIT 50.2 % (42.0-52.0); HEMOGLOBIN 16.8 g/dl (14.0-18.0); IMMATURE GRANULOCYTE % 0.4 % (0-3.0); LYMPH # 1.7 10^3/uL (1.5-6.5); LYMPH % 15.5 % (24.0-44.0); MEAN CORPUSCULAR HEMOGLOBIN 29.2 pg (27.0-33.0); MEAN CORPUSCULAR HGB CONC 33.5 g/dl (32.0-36.5); MEAN CORPUSCULAR VOLUME 87.2 fl (80.0-96.0); MONO # 0.7 10^3/uL (0.0-0.8); MONO % 6.1 % (0.0-5.0); NEUTROPHILS # 8.2 10^3/uL (1.8-7.7); PLATELET COUNT, AUTOMATED 385 10^3/uL (150-450); RED BLOOD COUNT 5.76 10^6/uL (4.30-6.10); RED CELL DISTRIBUTION WIDTH 15.3 % (11.5-14.5); WHITE BLOOD COUNT 10.7 10^3/uL (4.0-10.0)
[2017-08-09 09:05] LABS: PSA SCREENING 0.33 NG/ML (< 4.0)
== END ==
LOC: M LAB 08:13
DX: E29.1 Testicular hypofunction (principal); Z12.5 Encounter for screening for malignant neoplasm of prostate

== ENCOUNTER → 2019-05-05 | Outpatient (CLI) | payer MEDICARE, OTHER ==
[~2019-05-05] MED LIST changes: -NORC1TAB4 PO; +NORC1TAB7 PO; -PANT40TA2 PO; +PANT40TA3 PO
--- NOTE | 2019-05-07 09:43 | REP ---
MRI lumbar spine: 05/05/2019. Indication: Lumbar radiculopathy. Comparison: . Technique: Multiplanar short and long TR sequences of the lumbar spine were obtained without IV Gadolinium. New findings: Lumbar vertebral body alignment is within anatomical limits. Disc dessication is noted at L4/L5. No worrisome marrow signal is present. The visualized cord is normal. No significant paraspinal soft tissue abnormalities are present. L1/L2, L2/L3 and L3/L4: There is no focal disc herniation or significant spinal canal / neural foraminal narrowing. L4/L5: There is a right lateral disc protrusion superimposed on a diffuse disc bulge with moderate right recess and moderate to severe right neural foraminal narrowing. Mild to moderate left neural foraminal narrowing is present. L5/S1: There is no disc herniation or significant spinal canal / neural foraminal narrowing. Impression: Right lateral/marginal L L4/L5 disc herniation. Electronically Signed by Rubin Cordero DO 05/07/2019 09:34 A
== END ==
LOC: M RAD 08:17
PROVIDERS: ATTEND Physician Assistant Medical
DX: M51.26 Other intervertebral disc displacement, lumbar region (principal); M54.16 Radiculopathy, lumbar region

== ENCOUNTER → 2019-06-08 | Outpatient (CLI) | payer MEDICARE, OTHER ==
--- NOTE | 2019-06-08 08:36 | REP ---
MRI bilateral knees without contrast: History: Bilateral knee pain. Technique: Axial, coronal and sagittal imaging planes are utilized. T1, proton density and T2-weighted scans were included with and without fat saturation. Bilateral study. Left knee MRI findings: Cortical and medullary bone signal intensity are normal. No significant joint effusion is seen. There is no evidence of Pavon's cyst. Patellar and quadriceps tendons are intact. Anterior and posterior cruciate ligaments are unremarkable in appearance. There is no evident medial or lateral meniscal tear. No medial or lateral collateral ligament disruption is seen. There are small bone islands in the distal femur and proximal tibia. There is minimal chondromalacia change in the medial femoral condyle and lateral tibial plateau. Patellar articular cartilage is unremarkable. Impression: Minimal chondromalacia change in the medial femoral condyle and lateral tibial plateau. No internal derangement seen. Right knee MRI findings: Cortical and medullary bone signal intensity are normal. There is no evidence of joint effusion or Pavon's cyst. Patellar and quadriceps tendons are intact. There is no evidence of ACL or PCL disruption. The medial and lateral collateral ligamentous complexes appear intact. There is no visible meniscal tear. No articular cartilage lesion is seen. Impression: No internal derangement seen. Electronically Signed by Shashi Senior MD 06/08/2019 10:05 A
== END ==
LOC: M RAD 06:25
PROVIDERS: ATTEND Orthopaedic Surgery Sports Medicine
DX: M25.561 Pain in right knee (principal)

== ENCOUNTER → 2020-03-24 | Outpatient (CLI) | payer MEDICARE, OTHER ==
[~2020-03-24] MED LIST changes: +CYCL-707 PO; -CYCL10TA PO; +PANT40TA29 PO; -PANT40TA3 PO
[2020-03-24 12:08] LABS: BASO # 0.1 10^3/uL (0.0-0.2); BASO % 0.7 % (0.0-1.0); EOS # 0.9 10^3/uL (0.0-0.5); EOS % 8.7 % (0.0-3.0); HEMATOCRIT 51.3 % (42.0-52.0); LYMPH # 2.2 10^3/uL (1.5-5.0); MEAN CORPUSCULAR HEMOGLOBIN 29.8 pg (27.0-33.0); MEAN CORPUSCULAR HGB CONC 33.1 g/dl (32.0-36.5); MEAN CORPUSCULAR VOLUME 89.8 fl (80.0-96.0); MONO # 0.9 10^3/uL (0.0-0.8); MONO % 8.1 % (0.0-5.0); NEUTROPHILS # 6.5 10^3/uL (1.5-8.5); NEUTROPHILS % 61.1 % (36.0-66.0); PLATELET COUNT, AUTOMATED 296 10^3/uL (150-450); RED BLOOD COUNT 5.71 10^6/uL (4.30-6.10); WHITE BLOOD COUNT 10.7 10^3/uL (4.0-10.0)
[2020-03-25 20:07] LABS: TESTOSTERONE FREE (DIRECT) 11.5 pg/mL (9.3-26.5)
== END ==
LOC: M LAB 09:54
PROVIDERS: ATTEND Physician Assistant
DX: E29.1 Testicular hypofunction (principal)

== ENCOUNTER → 2022-11-19 | Outpatient (CLI) | payer OTHER, MEDICARE ==
[~2022-11-19] MED LIST changes: +MONT-5; -SING10TA32
[2022-11-19 10:18] LABS: BASO # 0.1 10^3/uL (0.0-0.2); BASO % 0.7 % (0.0-1.0); EOS # 0.7 10^3/uL (0.0-0.5); EOS % 9.4 % (0.0-3.0); HEMATOCRIT 49.9 % (42.0-52.0); HEMOGLOBIN 16.6 g/dl (13.5-17.5); LYMPH # 1.9 10^3/uL (1.5-5.0); MEAN CORPUSCULAR HEMOGLOBIN 29.4 pg (27.0-33.0); MEAN CORPUSCULAR HGB CONC 33.3 g/dl (32.0-36.5); MEAN CORPUSCULAR VOLUME 88.3 fl (80.0-96.0); MONO # 0.8 10^3/uL (0.0-0.8); MONO % 10.4 % (2.0-8.0); NEUTROPHILS % 53.4 % (36.0-66.0); PLATELET COUNT, AUTOMATED 241 10^3/uL (150-450); RED BLOOD COUNT 5.65 10^6/uL (4.30-6.10); WHITE BLOOD COUNT 7.4 10^3/uL (4.0-10.0)
[2022-11-20 18:10] LABS: TESTOSTERONE FREE (DIRECT) 2.5 pg/mL (8.7-25.1)
== END ==
LOC: M LAB 09:39
PROVIDERS: ATTEND Internal Medicine
DX: E29.1 Testicular hypofunction (principal); Z12.5 Encounter for screening for malignant neoplasm of prostate
CPT/HCPCS: 36415; 84402; 84403; 85025; G0103

== ENCOUNTER → 2023-05-18 | Outpatient (REF) | payer MEDICARE, OTHER | LOC: M SFHCPLAZ 12:06 | PROVIDERS: ATTEND Student in an Organized Health Care Education/Training Program | DX: J06.9 Acute upper respiratory infection, unspecified (principal) ==

== ENCOUNTER → 2023-06-23 | Outpatient (CLI) | payer OTHER, MEDICARE ==
[2023-06-23 08:22] LABS: BASO # 0.1 10^3/uL (0.0-0.2); BASO % 0.6 % (0.0-1.0); EOS # 0.5 10^3/uL (0.0-0.5); EOS % 5.3 % (0.0-3.0); LYMPH # 2.6 10^3/uL (1.5-5.0); LYMPH % 27.2 % (24.0-44.0); MEAN CORPUSCULAR HEMOGLOBIN 29.9 pg (27.0-33.0); MEAN CORPUSCULAR HGB CONC 33.3 g/dl (32.0-36.5); MEAN CORPUSCULAR VOLUME 89.6 fl (80.0-96.0); MONO # 0.8 10^3/uL (0.0-0.8); MONO % 8.8 % (2.0-8.0); NEUTROPHILS # 5.4 10^3/uL (1.5-8.5); NEUTROPHILS % 57.7 % (36.0-66.0); PLATELET COUNT, AUTOMATED 299 10^3/uL (150-450); RED BLOOD COUNT 5.69 10^6/uL (4.30-6.10); WHITE BLOOD COUNT 9.4 10^3/uL (4.0-10.0)
[2023-06-23 08:47] LABS: ALBUMIN 3.8 G/DL (3.2-5.2); ALKALINE PHOSPHATASE 65 U/L (46-116); ALT/SGPT 47 U/L (7.0-40); AST/SGOT 20 U/L (<34); BILIRUBIN,TOTAL 0.4 MG/DL (0.3-1.2); BLOOD UREA NITROGEN 16 MG/DL (9-23); CALCIUM LEVEL 8.3 MG/DL (8.5-10.1); CARBON DIOXIDE LEVEL 25 MMOL/L (20-31); CHLORIDE LEVEL 109 MMOL/L (98-107); CHOLESTEROL LEVEL 210 MG/DL (<200); CHOLESTEROL RISK RATIO 5.19 (<5); CREATININE FOR GFR 1.01 MG/DL (0.70-1.30); GLOMERULAR FILTRATION RATE > 60.0 (>60); GLUCOSE, FASTING 97 MG/DL (60-100); HDL CHOLESTEROL 40.4 MG/DL (>40); NON-HDL-C 169.6 MG/DL; POTASSIUM SERUM 4.6 MMOL/L (3.5-5.1); SODIUM LEVEL 139 MMOL/L (136-145); TOTAL PROTEIN 6.7 G/DL (5.7-8.2); TRIGLYCERIDES LEVEL 253 MG/DL (<150)
[2023-06-23 08:49] LABS: FOLATE 13.2 NG/ML (>5.4)
[2023-06-23 08:50] LABS: THYROID STIMULATING HORMONE 1.527 uIU/ML (0.55-4.78); TOTAL 25(OH) VITAMIN D 31.8 NG/ML (20.0-100.0); VITAMIN B12 LEVEL 1049 PG/ML (211-911)
[2023-06-23 09:04] LABS: HEMOGLOBIN A1c 5.4 % (4.0-6.0)
== END ==
LOC: M LAB 07:44
PROVIDERS: ATTEND Physician Assistant
DX: B35.1 Tinea unguium (principal); I10 Essential (primary) hypertension; R51.9 Headache, unspecified

== ENCOUNTER → 2023-07-01 | Outpatient (CLI) | payer OTHER, MEDICARE ==
[2023-07-01 11:17] LABS: BASO # 0.1 10^3/uL (0.0-0.2); BASO % 0.6 % (0.0-1.0); EOS # 0.7 10^3/uL (0.0-0.5); EOS % 6.5 % (0.0-3.0); HEMATOCRIT 51.2 % (42.0-52.0); LYMPH # 2.4 10^3/uL (1.5-5.0); LYMPH % 22.5 % (24.0-44.0); MEAN CORPUSCULAR HEMOGLOBIN 29.5 pg (27.0-33.0); MEAN CORPUSCULAR HGB CONC 33.2 g/dl (32.0-36.5); MEAN CORPUSCULAR VOLUME 88.9 fl (80.0-96.0); MONO # 0.8 10^3/uL (0.0-0.8); MONO % 7.7 % (2.0-8.0); NEUTROPHILS # 6.6 10^3/uL (1.5-8.5); NEUTROPHILS % 62.2 % (36.0-66.0); PLATELET COUNT, AUTOMATED 322 10^3/uL (150-450); RED BLOOD COUNT 5.76 10^6/uL (4.30-6.10); WHITE BLOOD COUNT 10.6 10^3/uL (4.0-10.0)
== END ==
LOC: M LAB 10:12
PROVIDERS: ATTEND Internal Medicine
DX: E29.1 Testicular hypofunction (principal); Z12.5 Encounter for screening for malignant neoplasm of prostate
CPT/HCPCS: 36415; 84402; 84403; 85025; G0103

== ENCOUNTER → 2023-08-19 | Outpatient (CLI) | payer OTHER, MEDICARE | LOC: M RAD 13:24 | PROVIDERS: ATTEND Physician Assistant | DX: J45.909 Unspecified asthma, uncomplicated (principal) ==

== ENCOUNTER → 2023-10-25 | Outpatient (REF) | payer OTHER, MEDICARE ==
[2023-10-25 11:23] LABS: SEMEN APPEARANCE OPAQUE (OPAQUE)
[2023-10-25 11:24] LABS: SEMEN VISCOSITY LIQUID (LIQUID); SEMEN VOLUME 2.3 ML (2.0-5.0); SEMEN WBC <=1 M/ml (<=1 M/ml)
== END ==
LOC: M SFHCWAGY 11:01
PROVIDERS: ATTEND Specialist
DX: N46.9 Male infertility, unspecified (principal)

== ENCOUNTER → 2023-11-08 | Outpatient (CLI) | payer MEDICARE, OTHER ==
[2023-11-08 17:20] LABS: BASO # 0.1 10^3/uL (0.0-0.2); BASO % 0.5 % (0.0-1.0); EOS # 0.4 10^3/uL (0.0-0.5); EOS % 3.7 % (0.0-3.0); HEMATOCRIT 53.1 % (42.0-52.0); HEMOGLOBIN 17.7 g/dl (13.5-17.5); LYMPH # 2.2 10^3/uL (1.5-5.0); LYMPH % 19.1 % (24.0-44.0); MEAN CORPUSCULAR HEMOGLOBIN 29.3 pg (27.0-33.0); MEAN CORPUSCULAR HGB CONC 33.3 g/dl (32.0-36.5); MEAN CORPUSCULAR VOLUME 87.9 fl (80.0-96.0); MONO % 8.4 % (2.0-8.0); NEUTROPHILS # 7.8 10^3/uL (1.5-8.5); PLATELET COUNT, AUTOMATED 291 10^3/uL (150-450); RED BLOOD COUNT 6.04 10^6/uL (4.30-6.10); WHITE BLOOD COUNT 11.5 10^3/uL (4.0-10.0)
[2023-11-08 17:50] LABS: BLOOD UREA NITROGEN 16 MG/DL (9-23); CALCIUM LEVEL 9.5 MG/DL (8.5-10.1); CARBON DIOXIDE LEVEL 28 MMOL/L (20-31); CHLORIDE LEVEL 107 MMOL/L (98-107); GLOMERULAR FILTRATION RATE > 60.0 (>60); GLUCOSE, FASTING 92 MG/DL (60-100); POTASSIUM SERUM 4.5 MMOL/L (3.5-5.1); SODIUM LEVEL 139 MMOL/L (136-145)
== END ==
LOC: M LAB 16:37
PROVIDERS: ATTEND Family Medicine
DX: Z01.818 Encounter for other preprocedural examination (principal); I10 Essential (primary) hypertension; E29.1 Testicular hypofunction

== ENCOUNTER → 2023-11-24 | Outpatient (CLI) | payer OTHER | LOC: M CARPUL 13:37 | PROVIDERS: ATTEND Physician Assistant | DX: J45.998 Other asthma (principal) ==

== ENCOUNTER → 2024-02-02 | Outpatient (CLI) | payer OTHER ==
[2024-02-02 09:56] LABS: LUTEINIZING HORMONE < 0.1 mIU/ML (1.5-9.3)
[2024-02-02 10:15] LABS: FOLLICLE STIMULATING HORMONE 0.3 mIU/ML (1.4-18.1)
[2024-02-02 10:16] LABS: PROLACTIN 12.05 NG/ML (2.1-17.7)
[2024-02-02 10:17] LABS: TESTOSTERONE 1041 NG/DL (241-827)
[2024-02-02 10:52] LABS: SEMEN APPEARANCE OPAQUE (OPAQUE); SEMEN VISCOSITY LIQUID (LIQUID); SEMEN VOLUME 4.1 ML (2.0-5.0); SEMEN WBC >1 M/ml (<=1 M/ml); SEMEN pH 8.5 (7.0-8.0)
== END ==
LOC: M LAB 08:37
PROVIDERS: ATTEND Urology
DX: Z12.71 Encounter for screening for malignant neoplasm of testis (principal); N46.8 Other male infertility

== ENCOUNTER → 2024-05-11 | Outpatient (CLI) | payer OTHER | LOC: M PLAIMG 15:44 | PROVIDERS: ATTEND Nurse Practitioner Family | DX: M25.561 Pain in right knee (principal); M25.562 Pain in left knee ==

== ENCOUNTER 2024-05-25 10:04 | Emergency (ER) | payer OTHER ==
[~2024-05-25] VITALS: Ht 195.6 cm; Wt 118.2 kg
[2024-05-25 11:26] LABS: HEMATOCRIT 51.4 % (42.0-52.0); HEMOGLOBIN 17.1 g/dl (13.5-17.5); MEAN CORPUSCULAR HEMOGLOBIN 28.7 pg (27.0-33.0); MEAN CORPUSCULAR HGB CONC 33.3 g/dl (32.0-36.5); MEAN CORPUSCULAR VOLUME 86.4 fl (80.0-96.0); PLATELET COUNT, AUTOMATED 302 10^3/uL (150-450); RED BLOOD COUNT 5.95 10^6/uL (4.30-6.10); WHITE BLOOD COUNT 10.7 10^3/uL (4.0-10.0)
[2024-05-25 11:53] LABS: AMPHETAMINES LEVEL URINE NEGATIVE (NEGATIVE); BARBITURATES URINE NEGATIVE (NEGATIVE); BENZODIAZEPINES URINE NEGATIVE (NEGATIVE); METHADONE URINE NEGATIVE (NEGATIVE); OPIATES URINE NEGATIVE (NEGATIVE); PHENCYCLIDINE URINE NEGATIVE (NEGATIVE)
[2024-05-25 11:55] LABS: CANNABINOIDS URINE POSITIVE (NEGATIVE); COCAINE METABOLITE URINE POSITIVE (NEGATIVE)
[2024-05-25 11:57] LABS: ETHYL ALCOHOL (ETHANOL) < 0.003 % (0.000-0.010)
[2024-05-25 11:58] LABS: SALICYLATE LEVEL < 3.0 MG/DL (<30)
[2024-05-25 11:59] LABS: ALBUMIN 3.6 G/DL (3.2-5.2); ALKALINE PHOSPHATASE 58 U/L (40-129); ALT/SGPT 38 U/L (7.0-40); AST/SGOT 19 U/L (<34); BILIRUBIN,DIRECT 0.1 MG/DL (<0.4); BILIRUBIN,TOTAL 0.4 MG/DL (0.3-1.2); BLOOD UREA NITROGEN 14 MG/DL (9-23); CALCIUM LEVEL 9.4 MG/DL (8.5-10.1); CARBON DIOXIDE LEVEL 25 MMOL/L (20-31); CHLORIDE LEVEL 106 MMOL/L (98-107); CREATININE FOR GFR 1.09 MG/DL (0.70-1.30); GLOMERULAR FILTRATION RATE > 60.0 (>60); GLUCOSE, FASTING 100 MG/DL (60-100); POTASSIUM SERUM 4.1 MMOL/L (3.5-5.1); SODIUM LEVEL 139 MMOL/L (136-145); THYROID STIMULATING HORMONE 0.699 uIU/ML (0.55-4.78); TOTAL PROTEIN 6.9 G/DL (5.7-8.2)
[2024-05-25 13:37] VITALS: BP 170/92; TEMP 97.2; O2SAT 96
== END 2024-05-25 13:39 | disposition home or self-care (01) ==
LOC: M ED 10:04
DX: F43.10 Post-traumatic stress disorder, unspecified (principal); J45.909 Unspecified asthma, uncomplicated; F17.200 Nicotine dependence, unspecified, uncomplicated; F12.10 Cannabis abuse, uncomplicated; Z79.52 Long term (current) use of systemic steroids; Z79.899 Other long term (current) drug therapy

== ENCOUNTER → 2025-06-05 | Outpatient (REF) | payer MEDICARE ==
[~2025-06-05] MED LIST changes: -ADV500INH; +ADVA1AER10
[2025-06-05 13:59] LABS: SEMEN APPEARANCE OPAQUE (OPAQUE); SEMEN VISCOSITY LIQUID (LIQUID); SEMEN VOLUME 3.3 ML (2.0-5.0); SEMEN WBC <=1 M/ml (<=1 M/ml)
== END ==
LOC: M LAB REF 13:41
PROVIDERS: ATTEND Urology
DX: N46.8 Other male infertility (principal); E29.1 Testicular hypofunction